=== PATIENT | male | born 1955 | race Caucasian/White ===

== ENCOUNTER 2016-04-24 15:00 | Outpatient (RCR) | payer BC ==
[~2016-04-24 15:00] MED LIST: NO HOME MEDICATIONS; NORCO 325 MG-51 TAB PO
== END 2016-04-26 | disposition home or self-care (01) ==
LOC: WSPT
DX: Z96.652 Presence of left artificial knee joint (principal)

== ENCOUNTER 2016-07-03 11:08 | Outpatient (RCR) | payer BC | END 2016-07-03 11:35 | disposition home or self-care (01) | LOC: WSPT 11:08 | DX: Z47.89 Encounter for other orthopedic aftercare (principal); M25.862 Other specified joint disorders, left knee ==

== ENCOUNTER 2017-02-12 11:18 | Emergency (ER) | payer BC ==
[~2017-02-12] VITALS: Ht 182.9 cm; Wt 109.0 kg
[2017-02-12 11:35] VITALS: BP 113/74; TEMP 98.7
[2017-02-12] MEDS ORDERED: CLEOCIN HCL300 MG PO (14:12)
[2017-02-12 14:25] VITALS: PULSE 77
== END 2017-02-12 14:25 | disposition home or self-care (01) ==
LOC: COL.ER 11:18
DX: K04.7 Periapical abscess without sinus (principal); R29.810 Facial weakness; I10 Essential (primary) hypertension